=== PATIENT | female | born 1975 | race Hispanic/Latino ===

== ENCOUNTER 2016-09-06 11:46 | Emergency (ER) | payer OTHER ==
[2016-09-06 12:23] VITALS: BMI 34.1
[2016-09-06 12:27] VITALS: TEMP 97.7
[2016-09-06 13:15] LABS: BASO % 0.9 % (0.0-2.0); EOS # 0.4 K/uL (0.0-0.7); EOS % 7.6 % (0.0-4.0); HEMATOCRIT 38.8 % (34.0-47.0); LYMPH # 1.9 K/uL (1.0-4.3); LYMPH % 33.3 % (20.0-40.0); MEAN CELL VOLUME 91.6 fL (81.0-99.0); MEAN CORPUSCULAR HEMOGLOBIN 30.3 pg (27.0-31.0); MEAN CORPUSCULAR HGB CONC 33.1 g/dL (33.0-37.0); MEAN PLATELET VOLUME 8.3 fL (7.2-11.7); MONO # 0.5 K/uL (0.0-0.8); MONO % 9.1 % (0.0-10.0); NRBC % 0.1 % (0.0-2.0); RED CELL DISTRIBUTION WIDTH 12.6 % (11.5-14.5); WHITE BLOOD COUNT 5.7 K/uL (4.8-10.8)
--- NOTE | 2016-09-06 13:33 | C.PDOC ---
History Of Present Illness 41 y/o female presents to ED with complaint of bilateral leg swelling for 1 week. Patient states swelling is greater on the right side. Notes pain with walking. Denies numbness, weakness, history of DVT, chest pain, SOB, or injury. Patient states she felt short of breath while walking up the stairs yesterday. Time Seen by Provider: 09/06/16 12:34 Chief Complaint (Nursing): Lower Extremity Problem/Injury History Per: Patient History/Exam Limitations: no limitations Onset/Duration Of Symptoms: Days Current Symptoms Are (Timing): Still Present Recent travel outside of the [place]: No Past Medical History Reviewed: Historical Data, Nursing Documentation, Vital Signs Vital Signs: Last Vital Signs Temp 97.7 F 09/06/16 12:23 Pulse 82 09/06/16 14:30 Resp 20 09/06/16 14:30 BP 120/70 09/06/16 14:30 Pulse Ox 100 09/06/16 14:50 - Medical History PMH: Back Problems, Depression Family History: States: Unknown Family Hx - Social History Hx Alcohol Use: No Hx Substance Use: No - Immunization History Hx Tetanus Toxoid Vaccination: No Hx Influenza Vaccination: Yes Hx Pneumococcal Vaccination: Yes Review Of Systems Except As Marked, All Systems Reviewed And Found Negative. Constitutional: Negative for: Fever, Chills Cardiovascular: Negative for: Chest Pain Respiratory: Negative for: Shortness of Breath, Wheezing Gastrointestinal: Negative for: Nausea, Vomiting Musculoskeletal: Positive for: Other (bilateral leg swelling) Skin: Negative for: Rash Neurological: Negative for: Dizziness Physical Exam - Physical Exam Appears: Non-toxic, No Acute Distress Skin: Normal Color, Warm, Dry Head: Atraumatic, Normacephalic Eye(s): bilateral: Normal Inspection, EOMI Oral Mucosa: Moist Neck: Normal ROM Chest: Symmetrical Cardiovascular: Rhythm Regular, No Murmur Respiratory: Normal Breath Sounds, No Rales, No Rhonchi, No Wheezing Gastrointestinal/Abdominal: Soft, No Tenderness, No Guarding, No Rebound Extremity: Normal ROM, No Tenderness, Pedal Edema (right greater than left ), No Calf Tenderness, Capillary Refill (< 2 sec.), No Deformity Pulses: Left Dorsalis Pedis: Normal, Right Dorsalis Pedis: Normal Neurological/Psych: Oriented x3, Normal Speech, Normal Cognition, Normal Motor, Normal Sensation ED Course And Treatment - Laboratory Results Result Diagrams: 09/06/16 13:05 09/06/16 13:05 Lab Interpretation: No Acute Changes O2 Sat by Pulse Oximetry: 100 (RA) Pulse Ox Interpretation: Normal Medical Decision Making Medical Decision Making: Plan: EKG, CXR, labs, venous duplex ordered. Progress: Labs are unremarkable Venous duplex negative for DVT bilaterally CXR shows mild heart enlargement, otherwise no acute disease Patient remained well in no acute distress, vital signs stable. Discussed results with patient, and copy of report were provided. Patient given follow up instructions. Instructed to return to ER if symptoms worsen or new symptoms arise. Disposition Counseled Patient/Family Regarding: Diagnosis, Need For Followup, Rx Given - Disposition Referrals: Jose E Crawford DO [Staff Provider] - Disposition: HOME/ ROUTINE Disposition Time: 14:48 Condition: STABLE Additional Instructions: Your labs and venous doppler were normal, no blood clot Please follow up with your primary Dr Crawford for further evaluation Take medication to help with leg edema, and elevate legs at home Return to hospital for any worsening symptoms or concern Prescriptions: Furosemide [Lasix] 20 mg PO DAILY PRN #20 tab PRN Reason: Until An Adequate Response Is Instructions: Leg Edema (ED) Forms: Work Excuse - POA Present On Arrival: None - Clinical Impression Clinical Impression: Leg edema - PA / FLY [employer]KER / Resident Statement / has reviewed & agrees with the documentation as recorded. - Scribe Statement The provider has reviewed the documentation as recorded by the Scribe Renzo Gallegos All medical record entries made by the Meredithibmary were at my direction and personally dictated by me. I have reviewed the chart and agree that the record accurately reflects my personal performance of the history, physical exam, medical decision making, and the department course for this patient. I have also personally directed, reviewed, and agree with the discharge instructions and disposition.
--- NOTE | 2016-09-06 13:36 | RAD ---
HISTORY: leg swelling COMPARISON: No prior TECHNIQUE: Chest PA and lateral FINDINGS: LUNGS: Poor inspiration with low lung volumes, crowded bronchovascular markings and mild bibasilar atelectasis. Mild biapical pleural thickening PLEURA: No significant pleural effusion identified. No pneumothorax apparent. CARDIOVASCULAR: Heart size is mildly enlarged OSSEOUS STRUCTURES: No significant abnormalities. VISUALIZED UPPER ABDOMEN: Normal. OTHER FINDINGS: Bilateral nipple rings. IMPRESSION: Poor inspiration with low lung volumes, crowded bronchovascular markings and mild bibasilar atelectasis. . Mild biapical pleural thickening
[2016-09-06 13:53] LABS: RBC URINE 1 /hpf (0-3); URINE BACTERIA RARE (<OCC); URINE BILIRUBIN NEGATIVE (NEGATIVE); URINE BLOOD NEGATIVE (NEGATIVE); URINE COLOR Yellow (YELLOW); URINE GLUCOSE (UA) NORMAL (Normal); URINE KETONE NEGATIVE (NEGATIVE); URINE LEUKOCYTE ESTERASE NEG Leu/uL (Negative); URINE PROTEIN NEGATIVE (NEGATIVE); URINE UROBILINOGEN NORMAL mg/dL (0.2-1.0); WBC URINE < 1 /hpf (0-5)
[2016-09-06 14:30] LABS: CHLORIDE 105 mmol/L (98-107)
[2016-09-06 14:31] LABS: SODIUM 137 mmol/L (132-148)
[2016-09-06 14:33] LABS: ALB/GLOB RATIO 1.3 (1.0-2.1); ALKALINE PHOSPHATASE 35 U/L (38-126); AST/SGOT 38 U/L (14-36); BILIRUBIN,TOTAL 1.2 mg/dL (0.2-1.3); BLOOD UREA NITROGEN 12 mg/dL (7-17); CARBON DIOXIDE 22 mmol/L (22-30); GFR AFRICAN-AMERICAN > 60; GLUCOSE,RANDOM 86 mg/dL (65-105); TOTAL PROTEIN 6.8 g/dL (6.3-8.3)
[2016-09-06 14:34] LABS: ALT/SGPT 48 U/L (9-52); CALCIUM 8.1 mg/dl (8.6-10.4)
[2016-09-06 14:38] VITALS: BP 120/70; PULSE 82; RESP 20
[2016-09-06 14:50] VITALS: O2SAT 100
--- NOTE | 2016-09-07 10:17 | VASCLAB ---
PROCEDURE: Lower Extremity Venous Duplex Exam. HISTORY: B/l leg swelling, right greater PRIORS: None. TECHNIQUE: Bilateral common femoral, femoral, popliteal and posterior tibial, peroneal and great saphenous veins were evaluated. Flow was assessed with color Doppler, compressibility, assessment of phasic flow and augmentation response. Report prepared by Venecia Austin, BOWEN, RVS FINDINGS: RIGHT: 1. Common Femoral Vein: 1.1. Compressibility - Fully compressible: Thrombus - None : Flow - Phasic: Augmentation -Normal: Reflux - None. 2. Femoral Vein: 2.1. Compressibility - Fully compressible: Thrombus - None : Flow - Phasic: Augmentation -Normal: Reflux - None. 3. Popliteal Vein: 3.1. Compressibility - Fully compressible: Thrombus - None : Flow - Phasic: Augmentation -Normal: Reflux - None. 4. Posterior Tibial Vein: 4.1. Compressibility - Fully compressible: Thrombus - None: Flow - Phasic: Augmentation -Normal: Reflux - None. 5. Peroneal Vein: 5.1. Compressibility - Fully compressible: Thrombus - None: Flow - Phasic: Augmentation -Normal: Reflux - None. 6. Great Saphenous Vein: 6.1. Compressibility - Fully compressible: Thrombus - None: Flow - Phasic: Augmentation - Normal: Reflux - None. LEFT: 1. Common Femoral Vein: 1.1. Compressibility - Fully compressible: Thrombus - None: Flow - Phasic: Augmentation -Normal: Reflux - None. 2. Femoral Vein: 2.1. Compressibility - Fully compressible: Thrombus - None: Flow - Phasic: Augmentation -Normal: Reflux - None. 3. Popliteal Vein: 3.1. Compressibility - Fully compressible: Thrombus - None : Flow - Phasic: Augmentation -Normal: Reflux - None. 4. Posterior Tibial Vein: 4.1. Compressibility - Fully compressible: Thrombus - None: Flow - Phasic: Augmentation -Normal: Reflux - None. 5. Peroneal Vein: 5.1. Compressibility - Fully compressible: Thrombus - None: Flow - Phasic: Augmentation -Normal: Reflux - None. 6. Great Saphenous Vein: 6.1. Compressibility - Fully compressible: Thrombus - None: Flow - Phasic: Augmentation - Normal: Reflux - None. OTHER FINDINGS: Right: None significant. Left: None significant. IMPRESSION: Right: No evidence of deep or superficial vein thrombosis of the right lower extremity. Normal valve function noted of the right side. Left: No evidence of deep or superficial vein thrombosis of the left lower extremity. Normal valve function noted of the left side.
== END 2016-09-06 15:07 | disposition home or self-care (01) ==
LOC: C.ER 11:46
DX: R60.0 Localized edema (principal)

== ENCOUNTER 2016-12-25 17:35 | Emergency (ER) | payer OTHER ==
[2016-12-25 17:36] VITALS: BMI 34.1
[2016-12-25 17:48] VITALS: BP 128/86; PULSE 90; RESP 18; TEMP 98.6; O2SAT 100
--- NOTE | 2016-12-25 18:03 | C.PDOC ---
History Of Present Illness Patient is a 41 y/o F presenting with fractured tooth. Patient reports that her tooth has been cracked but that while eating today she completely broke it. She reports pain to the area. She reports that she was not able to follow-up with her dentist today so she presented to ED Chief Complaint (Nursing): Dental Pain Past Medical History Vital Signs: Last Vital Signs Temp 98.6 F 12/25/16 17:46 Pulse 90 12/25/16 17:46 Resp 18 12/25/16 17:46 BP 128/86 12/25/16 17:46 Pulse Ox 100 12/25/16 18:08 - Medical History PMH: Back Problems, Depression Family History: States: Unknown Family Hx - Social History Hx Alcohol Use: No Hx Substance Use: No - Immunization History Hx Tetanus Toxoid Vaccination: No Hx Influenza Vaccination: Yes Hx Pneumococcal Vaccination: Yes Review Of Systems Constitutional: Negative for: Fever ENT: Positive for: Other (tooth pain) Respiratory: Negative for: Cough, Shortness of Breath Gastrointestinal: Negative for: Nausea, Vomiting, Abdominal Pain, Diarrhea Skin: Negative for: Rash Physical Exam - Physical Exam Appears: Well, Non-toxic, No Acute Distress Skin: Normal Color, Warm, Dry Head: Atraumatic, Normacephalic Eye(s): bilateral: Normal Inspection, PERRL, EOMI Nose: Normal Oral Mucosa: Moist Tongue: Normal Appearing Lips: Normal Appearing Teeth: Caries, Other (fracture to tooth 14. tender) Gingiva: Normal Appearing Throat: Normal, No Erythema, No Exudate, No Drooling, No Mass Neck: Supple ED Course And Treatment O2 Sat by Pulse Oximetry: 100 Medical Decision Making Medical Decision Making: Fracture to tooth 14 today with pain. Patient discharged with antibiotics and pain medication and to follow-up with dentist tomorrow. Disposition - Disposition Disposition: HOME/ ROUTINE Disposition Time: 18:01 Condition: GOOD Additional Instructions: Follow-up with your dentist tomorrow. Motrin for pain. Percocet for severe pain. Return to ED if condition worsens. Prescriptions: oxyCODONE/Acetaminophen [Percocet 5/325 mg Tab] 1 ea PO Q6 #10 tab Penicillin VK [Penicillin VK Tab] 500 mg PO Q6H #56 tab Forms: [facility] (Ind[place]ian), Work Excuse - Clinical Impression Clinical Impression: Fractured tooth
[2016-12-25] MEDS ORDERED: Oxycodone/Acetaminophen 5/325 mg Tab ONE (18:08)
[2016-12-25] MEDS ORDERED: Oxycodone/Acetaminophen 5/325 mg Tab PO STA (18:27)
== END 2016-12-25 18:30 | disposition home or self-care (01) ==
LOC: C.ER 17:35
DX: S02.5XXA Fracture of tooth (traumatic), initial encounter for closed fracture (principal); X58.XXXA Exposure to other specified factors, initial encounter

== ENCOUNTER 2018-06-18 21:09 | Emergency (ER) | payer SELFPAY ==
[2018-06-18 21:09] VITALS: BMI 34.1
[2018-06-18 23:15] VITALS: BP 113/77; PULSE 98; RESP 20; TEMP 98.5; O2SAT 98
[2018-06-18 23:48] LABS: BARBITURATES, UR NEGATIVE (NEGATIVE); BENZODIAZEPINES, UR NEGATIVE (NEGATIVE); PHENCYCLIDINE, UR NEGATIVE (NEGATIVE)
[2018-06-19 00:49] LABS: OPIATES, UR POSITIVE (NEGATIVE)
--- NOTE | 2018-06-19 00:50 | C.PDOC ---
History Of Present Illness 43 year old female presents requesting detox. Upon learning that there are no detox beds available, patient immediately requested STD screening and UDS. Denies other complaints. Time Seen by Provider: 06/18/18 22:20 Chief Complaint (Nursing): Medical Clearance History Per: Patient History/Exam Limitations: no limitations Onset/Duration Of Symptoms: Hrs Current Symptoms Are (Timing): Still Present Recent travel outside of the [place]: No Past Medical History Reviewed: Historical Data, Nursing Documentation, Vital Signs Vital Signs: Last Vital Signs Temp 98.5 F 06/18/18 23:15 Pulse 98 H 06/18/18 23:15 Resp 20 06/18/18 23:15 BP 113/77 06/18/18 23:15 Pulse Ox 98 06/18/18 23:15 - Medical History PMH: Anxiety, Back Problems, Depression Family History: States: Unknown Family Hx - Social History Hx Alcohol Use: Yes Hx Substance Use: Yes - Immunization History Hx Tetanus Toxoid Vaccination: No Hx Influenza Vaccination: No Hx Pneumococcal Vaccination: Yes Review Of Systems Constitutional: Negative for: Fever, Chills Cardiovascular: Negative for: Chest Pain, Palpitations Respiratory: Negative for: Cough, Shortness of Breath Gastrointestinal: Negative for: Nausea, Vomiting Neurological: Negative for: Weakness, Numbness Physical Exam - Physical Exam Appears: Non-toxic Skin: Normal Color, Warm Head: Atraumatic, Normacephalic Eye(s): bilateral: Normal Inspection Chest: Symmetrical, No Tenderness Cardiovascular: Rhythm Regular Respiratory: Normal Breath Sounds, No Rales, No Rhonchi, No Wheezing Neurological/Psych: Oriented x3, Normal Speech Gait: Steady ED Course And Treatment O2 Sat by Pulse Oximetry: 98 (room air) Pulse Ox Interpretation: Normal Progress Note: UDS done, patient found to be positive for opiates and cocaine. Patient is in no acute distress, vitals are stable, advised to follow up at the clinic for STD screening. Disposition Counseled Patient/Family Regarding: Diagnosis, Need For Followup - Disposition Disposition: HOME/ ROUTINE Disposition Time: 00:47 Condition: STABLE Additional Instructions: Please follow up with PMD or outpatient detox Return to ER if worse Instructions: Polysubstance Abuse (DC) Forms: [employer] ([place]) - Clinical Impression Clinical Impression: Medical assessment, Substance abuse - PA / VP [employer] / Resident Statement MD/DO has reviewed & agrees with the documentation as recorded. - Scribe Statement The provider has reviewed the documentation as recorded by the Scribe Ramiro Saldana All medical record entries made by the Scribe were at my direction and personally dictated by me. I have reviewed the chart and agree that the record accurately reflects my personal performance of the history, physical exam, medical decision making, and the department course for this patient. I have also personally directed, reviewed, and agree with the discharge instructions and disposition.
== END 2018-06-19 01:06 | disposition home or self-care (01) ==
LOC: C.ER 21:09
DX: Z04.89 Encounter for examination and observation for other specified reasons (principal); F19.10 Other psychoactive substance abuse, uncomplicated
CPT/HCPCS: 99282; G0480